=== PATIENT | female | born 1975 | race African-American/Black ===

== ENCOUNTER 2016-07-27 20:28 | Emergency (ER) | payer OTHER ==
[~2016-07-27] VITALS: Ht 157.5 cm; Wt 65.8 kg
[~2016-07-27 20:28] MED LIST: HYDR1TAB PO
--- NOTE | 2016-07-27 20:45 | NUR ---
to bed 2 ambulatory c/o lower abdominal pain with vaginal bleeding since yesterday. urine sample collected and sent to lab. pending er md sanchez.
[2016-07-27] MEDS ORDERED: IBUPROFEN 600 MG TABLET PO ONE ×2 (20:54→21:00)
--- NOTE | 2016-07-27 20:56 | NUR ---
CALLED [employer]
--- NOTE | 2016-07-27 21:02 | NUR ---
care tech at bedside for blood draw.
[2016-07-27 21:16] LABS: APPEARANCE,URINE CLEAR (CLEAR); BILIRUBIN,URINE NEGATIVE (NEGATIVE); BLOOD, URINE 3+ Ery/uL (NEGATIVE); COLOR,URINE YELLOW (YELLOW); KETONES,URINE TRACE (NEGATIVE); LEUKOCYTE ESTERASE ,URINE NEGATIVE (NEGATIVE); NITRITE, URINE NEGATIVE (NEGATIVE); PROTEIN,URINE NEGATIVE (NEGATIVE); UGLUCOSE NEGATIVE (NEGATIVE); UROBILINOGEN,URINE 0.2 EU/dL (0.2)
[2016-07-27 21:19] LABS: BASOPHILS % (AUTO) 0.3 % (0.0-2.0); EOSINOPHILS # (AUTO) 0.1 /CMM (0.0-0.7); HEMATOCRIT 41 % (33-45); HEMOGLOBIN 12.8 g/dL (11.5-14.8); LYMPHOCYTES # (AUTO) 2.5 /CMM (0.8-4.8); LYMPHOCYTES % (AUTO) 30.3 % (20.0-44.0); MEAN CORPUSCULAR HEMOGLOBIN 26 PG (26.0-33.0); MEAN CORPUSCULAR HGB CONC 31 g/dl (31.0-36.0); MEAN CORPUSCULAR VOLUME 84 fL (82-100); MONOCYTES # (AUTO) 0.6 /CMM (0.1-1.30); MONOCYTES % (AUTO) 7.6 % (2.0-12.0); NEUTROPHILS # (AUTO) 4.9 /CMM (1.8-8.9); NEUTROPHILS % (AUTO) 60.8 % (43.0-81.0); PLATELET COUNT (AUTO) 278 /CMM (150-450); RDW COEFFICIENT OF VARIATION 15.3 (11.5-15.0); RED BLOOD CELL COUNT(AUTO) 4.88 MIL/uL (4.0-5.2); WHITE BLOOD COUNT (AUTO) 8.1 K/uL (4.3-11.0)
[2016-07-27 21:22] LABS: PREGNANCY TEST URINE QUAL NEGATIVE (NEGATIVE)
[2016-07-27 21:23] LABS: ADD URINE CULTURE YES; BACTERIA,URINE 2+ /HPF (None Seen)
--- NOTE | 2016-07-27 21:23 | NUR ---
jazmín gupta at bedside.
[2016-07-27 21:24] LABS: MUCUS,URINE Few /LPF (None Seen)
[2016-07-27 21:40] LABS: CALCIUM, SERUM 8.4 mg/dL (8.5-10.1); CREATININE 0.7 mg/dL (0.6-1.3)
[2016-07-27 21:42] LABS: POTASSIUM 5.5 mmol/L (3.5-5.1)
--- NOTE | 2016-07-27 21:44 | NUR ---
er md at bedside talking to pt regaridng lab and jazmín result. pending disposition.
[2016-07-27 21:54] VITALS: BP 127/75
--- NOTE | 2016-07-27 21:58 | NUR ---
Patient discharged to home in stable condition. Written and verbal after care instructions given. Patient verbalizes understanding of instruction. ambulatory with a steady gait
== END 2016-07-27 21:58 | disposition home or self-care (01) ==
LOC: ER 20:28
DX: R10.30 Lower abdominal pain, unspecified (principal); N93.9 Abnormal uterine and vaginal bleeding, unspecified; F17.200 Nicotine dependence, unspecified, uncomplicated
CPT/HCPCS: 36415; 76856-TC; 80048-TC; 81000-TC; 84703-TC; 85025-TC; 87086-TC; A4606; Z7610